=== PATIENT | male | born 1995 | race Two or more races ===

== ENCOUNTER → 2022-06-01 | Outpatient (CLI) | payer OTHER ==
[~2022-06-01] MED LIST: ISOVUE-300 61% 100ML VIAL As Ordered ONE; LIDOCAINE 1% MDV 20ML VIAL As Ordered ONE; PROHANCE 279.3MG/ML 5ML VIAL As Ordered ONE
== END ==
LOC: M RAD 06:33
PROVIDERS: ATTEND Physician Assistant Surgical
DX: M24.111 Other articular cartilage disorders, right shoulder (principal)
CPT/HCPCS: 23350; 73223; 77002; A9576; Q9967